=== PATIENT | male | born 1965 | race Caucasian/White ===

== ENCOUNTER 2019-08-06 10:03 | Emergency (ER) | payer OTHER, SELFPAY ==
[2019-08-06 10:14] VITALS: BP 159/96; PULSE 103; RESP 18; TEMP 37.6; O2SAT 97
--- NOTE | 2019-08-06 10:15 | ED.URI ---
HPI - URI/Sore Throat General Chief Complaint: Upper Respiratory Infection Stated Complaint: congestion/fever/cough Time Seen by Provider: 08/06/19 10:16 Source: patient and RN notes reviewed History of Present Illness HPI Narrative: Patient is a 53-year-old male that presents the urgent care with complaints of congestion, body aches, fever, chills, cough. Patient states that he has had it for approximately 1 week but is worsened within the last few days. Patient states his fever was 1022 nights ago and he has been using NyQuil, DayQuil, ibuprofen. Patient also reports of some wheezing in the evenings. No other acute complaints. No acute distress noted. Patient read the plan of care. Related Data Home Medications Medication Instructions Recorded Confirmed amitriptyline 10 mg tablet 10 mg PO ONCE 04/27/19 08/06/19 cholecalciferol (vitamin D3) 125 5,000 unit PO DAILY 04/27/19 08/06/19 mcg (5,000 unit) capsule hydrochlorothiazide 25 mg tablet 25 mg PO DAILY 04/27/19 08/06/19 loratadine 10 mg disintegrating 10 mg PO DAILY 04/27/19 08/06/19 tablet rabeprazole 20 mg tablet,delayed 20 mg PO DAILY 04/27/19 08/06/19 release tadalafil 20 mg tablet 20 mg PO DAILY PRN 04/27/19 08/06/19 aspirin [Aspirin Low Dose] 81 mg PO DAILY 08/06/19 08/06/19 multivitamin 1 tablet PO DAILY 08/06/19 08/06/19 [id number] oil [Fish 1 cap PO DAILY 08/06/19 08/06/19 Oil] ranitidine HCl 150 mg PO DAILY 08/06/19 08/06/19 Allergies Allergy/AdvReac Type Severity Reaction Status Date / Time adhesive AdvReac Intermediate RASH Verified 08/06/19 10:21 --TURNS INTO HIVES IF LEFT ON TOO LONG, PAPER TAPE OKAY Review of Systems Review of Systems: Narrative: CONSTITUTIONAL: Reports a fever, chills, sweats EYES: Denies visual changes, redness, or discharge. ENT: Reports of congestion and rhinorrhea CARDIOVASCULAR: Denies chest pain, palpitations, or edema. RESPIRATORY: Reports of dry and productive cough with intermittent wheezing GASTROINTESTINAL: Denies abdominal pain, nausea, vomiting, or diarrhea. GENITOURINARY: Denies dysuria or hematuria. SKIN: Denies rash or itching. MUSCULOSKELETAL: Denies back pain, joint pain; reports of body aches NEUROLOGIC: Denies headache, numbness, or weakness. All other systems reviewed are negative, except as documented in HPI. [facility] Family History Family History (Updated 05/20/17 @ 14:18 by DOCTOR UNKNOWN) Father Patient's father is in good health Hypertension Cerebrovascular accident Sibling Diabetes mellitus Hypertension Patient's brother is in good health Mother Family history of pancreatic cancer, Onset Age: 73 Social History Social History Smoking status: Former smoker Second hand tobacco smoke exposure: No Smoking end date: 06/17/89 Alcohol intake: current Comments At the time of my signature, I reviewed and agree with the nursing past medical, surgical, social, and family history. There is no relevant family history pertinent to the patient complaint. Exam Narrative: Exam Narrative: GENERAL: This is a well-nourished, well-developed patient, appears slightly fatigued HEAD: normocephalic, atraumatic. EYES: PERRL. Sclera clear/white. Vision is grossly intact. EARS: External ears normal, auditory canals clear and without drainage, TMs normal without perforation. Hearing grossly intact. NOSE: External nose normal with no obvious nasal discharge, nares without redness, clear rhinorrhea. THROAT: Mucous membranes moist, posterior pharynx clear. Mild postnasal drainage NECK: Neck supple, non-tender without lymphadenopathy CARDIOVASCULAR: Regular rate and rhythm without murmurs, gallops, or rubs. RESPIRATORY: Coarse wheezes to left upper lobe and diminished right lower lobe SKIN: Slightly diaphoretic. Warm, intact with no suspicious lesions or rash, good texture and turgor. NEURO: awake, alert, and oriented to person, place and time. There were
== END 2019-08-06 10:51 | disposition home or self-care (01) ==
PROVIDERS: Emergency Provider Nurse Practitioner Family; PCP Internal Medicine
DX: R06.2 Wheezing (principal); R05 Cough; R50.9 Fever, unspecified; Z87.891 Personal history of nicotine dependence; E78.00 Pure hypercholesterolemia, unspecified; I10 Essential (primary) hypertension; Z85.831 Personal history of malignant neoplasm of soft tissue
CPT/HCPCS: 87804; 99213; G0463

== ENCOUNTER 2019-10-28 09:57 | Outpatient (CLI) | payer OTHER, SELFPAY ==
[2019-10-28 10:47] LABS: Alanine Aminotransferase 41 U/L (4-50); Albumin Level 4.4 g/dL (3.5-5.1); Alkaline Phosphatase 90 U/L (38-126); Aspartate Amino Transferase 33 U/L (17-59); Bilirubin,Total 1.5 mg/dL (0.2-1.3); Blood Urea Nitrogen 27 mg/dL (9-20); Calcium 9.3 mg/dL (8.4-10.2); Carbon Dioxide 29 mmol/L (22-30); Chloride 103 mmol/L (98-107); Estimated Glomerular Filt Rate > 60; Glucose 107 mg/dL (75-110); Magnesium 2.1 mg/dL (1.6-2.3); Potassium 4.2 mmol/L (3.4-5.0); Sodium 139 mmol/L (137-145)
[2019-10-28 11:15] LABS: Prostate Specific Antigen 0.7 ng/mL (< OR = 4.0)
== END 2019-10-28 09:58 | disposition home or self-care (01) ==
PROVIDERS: PCP Internal Medicine; Visit Provider Internal Medicine
DX: R73.9 Hyperglycemia, unspecified (principal); Z12.5 Encounter for screening for malignant neoplasm of prostate
CPT/HCPCS: 36415; 80053; 83735; 84153; G0103

== ENCOUNTER 2020-02-28 01:52 | Emergency (ER) | payer OTHER, SELFPAY ==
--- NOTE | ~2020-02-28 | CT_ITS ---
EXAMINATION: CT abdomen pelvis wo con DATE: 02/28/2020 02:31 INDICATION: Left flank pain TECHNIQUE: Computed tomography (CT) of the abdomen and pelvis was performed without intravenous contr ast. The dose-length product was 1108.09 mGy-cm. Automated exposure control and iterative reconstruct ion technique were employed. COMPARISON: None. FINDINGS: Bibasilar atelectasis. No significant pleural or pericardial effusion. Heart size normal. No significant vascular abnormality. There is a 4 mm left UVJ stone with mild-moderate left hydroureteronephrosis. There is left perinephr ic and periureteral edema. There is bilateral nephrolithiasis. Liver, spleen, pancreas, adrenal glands are unremarkable. Nonobstructive bowel gas pattern. Appendix not definitely visualized. Enlarged prostate gland. Nonobstructive bowel gas pattern. Status post par tial colectomy. No free air or free fluid. No acute osseous abnormality. IMPRESSION: 1. Left UVJ stone measuring 4 mm causing mild-moderate left hydroureteronephrosis. 2: Bilateral nephrolithiasis. Reviewed, dictated and finalized at location A. IMPRESSION: 1. Left UVJ stone measuring 4 mm causing mild-moderate left hydroureteronephros is. 2: Bilateral nephrolithiasis.
[2020-02-28 01:52] VITALS: BP 179/99; PULSE 82; RESP 20; TEMP 36.7; O2SAT 99
--- NOTE | 2020-02-28 02:00 | ED.ABDPAIN ---
HPI - Abdominal Pain General Chief Complaint: Abdominal Pain Stated Complaint: L FLANK PAIN Time Seen by Provider: 02/28/20 02:00 History of Present Illness HPI narrative: Pain in the left lower back radiating to the LLQ since yesterday morning. Worse throughout the day. Associated with nausea and possibly dysuria. Initially relieved by tylenol, no longer helping. Similar pain in the past from kidney stone and ruptured tumor . He does report that he was recently experiencing diarrhea. No fever, CP, SOB, cough. Related Data Home Medications Medication Instructions Recorded Confirmed cholecalciferol (vitamin D3) 125 5,000 unit PO DAILY 04/27/19 11/03/19 mcg (5,000 unit) capsule loratadine 10 mg disintegrating 10 mg PO DAILY 04/27/19 11/03/19 tablet rabeprazole 20 mg tablet,delayed 20 mg PO DAILY 04/27/19 11/03/19 release multivitamin 1 tablet PO DAILY 08/06/19 11/03/19 ranitidine HCl 150 mg PO DAILY 08/06/19 11/03/19 Allergies Allergy/AdvReac Type Severity Reaction Status Date / Time adhesive AdvReac Intermediate RASH Verified 10/30/19 14:09 --TURNS INTO HIVES IF LEFT ON TOO LONG, PAPER TAPE OKAY Review of Systems Review of Systems: All systems reviewed & are unremarkable except as noted in HPI and below Constitutional: Constitutional: Denies fever(s) Cardiovascular: Cardiovascular: Denies chest pain Respiratory: Respiratory: Denies dyspnea Gastrointestinal: Gastrointestinal: Reports abdominal pain, Reports diarrhea, Reports nausea and Denies vomiting Genitourinary: Genitourinary: Reports dysuria and Denies urinary frequency Neurologic: Denies confusion and Denies weakness [facility] Past Medical History Medical History History of sarcoma HTN (hypertension) Family History Family History Father Patient's father is in good health Hypertension Cerebrovascular accident Sibling Diabetes mellitus Hypertension Patient's brother is in good health Mother Family history of pancreatic cancer, Onset Age: 73 Social History Social History Smoking status: Former smoker Second hand tobacco smoke exposure: No Smoking end date: 06/17/89 Alcohol intake: current Substance use: never Exam Const: General: no acute distress and alert Nutritional Appearance: obese Orientation/consciousness: patient oriented x3 HENMT: Head: normal to inspection Resp: Effort & Inspection: normal respiratory effort Auscultation: clear to auscultation bilaterally Cardio: Rate: regular rate Rhythm: regular rhythm GI: GI Palp: Yes Soft to palpation, No Tenderness to palpation present (GI), No Guarding due to palpation present (GI) and No Rebound tenderness present Back/Spine/Pelvis: Back: no CVA tenderness Skin: General skin exam: normal color Neuro: General: patient oriented x3, moves all extremities, no focal motor deficits and CN's II-XI intact bilaterally Speech: normal speech Extrem: General: normal to inspection and no edema Course Vital Signs Vital signs: Vital Signs Temperature 36.7 C 02/28/20 01:52 Pulse Rate 82 02/28/20 01:52 Respiratory Rate 20 02/28/20 01:52 Blood Pressure 179/99 H 02/28/20 01:52 Pulse Oximetry 99 02/28/20 01:52 Temperature 36.7 C 02/28/20 01:52 Pulse Rate 57 L 02/28/20 02:49 Respiratory Rate 18 02/28/20 02:49 Blood Pressure 152/91 H 02/28/20 02:49 Pulse Oximetry 99 02/28/20 02:49 MDM - Abdominal Pain MDM Narrative Medical decision making narrative: CT showed 4 mm distal stone. He passed it while still in the ED. Feeling much better Differential Diagnosis Differential diagnosis: Likely calculus of kidney, constipation, diverticulitis and small bowel obstruction Medical Records Attestation: I reviewed the patient's medical records
--- NOTE | 2020-02-28 02:15 | PC.NURSE ---
Pt attempted to provide urine sample and was unable to void. RN will attempt to get a urine sample again in 30mins.
[2020-02-28 02:20] LABS: Basophils Percent Auto 0.2 % (0.2-1.2); Eosinophils Absolute Auto 0.1 K/mm3 (0-0.3); Hematocrit 42.1 % (42.0-52.0); Hemoglobin 14.9 g/dL (14.0-18.0); Immature Granulocyte Absolute 0.03 K/mm3 (0.00-0.031); Immature Granulocyte Percent A 0.3 % (0-0.5); Lymphocytes Absolute Auto 1.83 K/mm3 (0.9-3.2); Lymphocytes Percent Auto 15.9 % (18.3-44.2); Mean Corpuscular HGB Conc 35.4 g/dl (32-36); Mean Corpuscular Hemoglobin 30.7 pg (26-34); Mean Corpuscular Volume 86.6 fl (80-100); Mean Platelet Volume 12.6 fl (7.4-10.4); Monocytes Absolute Auto 0.9 K/mm3 (0.1-0.6); Monocytes Percent Auto 7.7 % (2.6-8.5); Neutrophils Absolute Auto 8.6 K/mm3 (1.3-6.7); Neutrophils Percent Auto 74.9 % (45.5-73.1); Platelet Count Result 136 k/mm3 (150-375); Red Blood Count 4.86 M/mm3 (4.6-6.20); Red Cell Distribution Width 13.2 % (11.5-14.5); White Blood Count 11.5 K/mm3 (4.5-10.0)
[2020-02-28 02:37] LABS: Alanine Aminotransferase 40 U/L (4-50); Alkaline Phosphatase 97 U/L (38-126); Aspartate Amino Transferase 26 U/L (17-59); Bilirubin,Total 1.3 mg/dL (0.2-1.3); Blood Urea Nitrogen 13 mg/dL (9-20); Calcium 9.3 mg/dL (8.4-10.2); Estimated Glomerular Filt Rate > 60; Glucose 126 mg/dL (75-110); Lipase 59 U/L (23-300); Potassium 3.2 mmol/L (3.4-5.0); Sodium 139 mmol/L (137-145)
[2020-02-28 02:38] LABS: Albumin Level 4.3 g/dL (3.5-5.1); Anion Gap 7 mmol/L (8-16); Carbon Dioxide 31 mmol/L (22-30); Chloride 101 mmol/L (98-107)
[2020-02-28 02:49] VITALS: BP 152/91; PULSE 57; RESP 18; O2SAT 99
--- NOTE | 2020-02-28 02:50 | PC.NURSE ---
Pt refuses to attempt a urine sample. Pt refuses to be straight cathed for urine. MD Ni aware of delay and states he will order IV fluids. Awaiting orders.
[2020-02-28] MEDS: MORPHINE SULFATE 4 MG/ML INJ IV PUSH (02:57)
[2020-02-28] MEDS: SODIUM CHLORIDE 0.9% IV 1,000 ML 999 ML IV CONT (03:05)
[2020-02-28] MEDS: TAMSULOSIN HCL 0.4 MG CAPSULE PO (03:07)
[2020-02-28 03:27] LABS: Add Urine Microscopic? YES; Appearance Urine Clear (Clear); Bilirubin Urine Negative (Negative); Blood Urine 1+ (Negative); Color Urine Yellow (Yellow); Glucose Urine UA Negative (Negative); Ketones Urine Negative (Negative); Leukocyte Esterase Ur Negative LEU/UL (Negative); Mucus Urine Rare /lpf; Nitrate Urine Negative (Negative); Protein Urine Negative (Negative); Specific Grav Ur 1.014 (1.001-1.035); Squamous Epithelial Cell Urine Rare /hpf (Few); Urobilinogen Urine Negative mg/dL (<2.0); WBC Urine 0-3 /hpf
--- NOTE | 2020-02-28 03:38 | PC.NURSE ---
pt passed kidney stone at this time
[2020-02-28 04:03] VITALS: BP 140/80; PULSE 78; RESP 16; O2SAT 97
== END 2020-02-28 04:05 | disposition home or self-care (01) ==
PROVIDERS: Emergency Provider Emergency Medicine; PCP Internal Medicine
DX: N20.1 Calculus of ureter (principal); Z87.891 Personal history of nicotine dependence; I10 Essential (primary) hypertension
CPT/HCPCS: 36415; 74176; 80053; 81001; 83690; 85025; 96361; 96374; 96375; 99284; A9270; J2270; J3010; J7030

== ENCOUNTER 2020-05-03 07:11 | Outpatient (CLI) | payer OTHER, SELFPAY ==
[2020-05-03 07:38] LABS: Hematocrit 45.3 % (42.0-52.0); Mean Corpuscular HGB Conc 35.3 g/dl (32-36); Mean Corpuscular Hemoglobin 31.1 pg (26-34); Mean Platelet Volume 12.3 fl (7.4-10.4); Platelet Count Result 130 k/mm3 (150-375); Red Blood Count 5.15 M/mm3 (4.6-6.20); Red Cell Distribution Width 13.3 % (11.5-14.5); White Blood Count 7.4 K/mm3 (4.5-10.0)
[2020-05-03 07:51] LABS: Alanine Aminotransferase 55 U/L (4-50); Albumin Level 4.5 g/dL (3.5-5.1); Alkaline Phosphatase 93 U/L (38-126); Anion Gap 9 mmol/L (8-16); Aspartate Amino Transferase 34 U/L (17-59); Bilirubin,Total 1.7 mg/dL (0.2-1.3); Blood Urea Nitrogen 22 mg/dL (9-20); Calcium 8.8 mg/dL (8.4-10.2); Carbon Dioxide 31 mmol/L (22-30); Chloride 101 mmol/L (98-107); Cholesterol 140 mg/dL (0-200); Estimated Glomerular Filt Rate > 60; Glucose 111 mg/dL (75-110); HDL Direct 26 mg/dL; Sodium 141 mmol/L (137-145); Triglycerides 173 mg/dL (<150)
[2020-05-03 08:02] LABS: LDL Cholesterol Direct 82 mg/dL
== END 2020-05-03 07:12 | disposition home or self-care (01) ==
PROVIDERS: PCP Internal Medicine; Visit Provider Physician Assistant
DX: I10 Essential (primary) hypertension (principal)
CPT/HCPCS: 36415; 80053; 80061; 84443; 85027

== ENCOUNTER 2020-11-10 07:03 | Outpatient (CLI) | payer OTHER, SELFPAY ==
[2020-11-10 07:43] LABS: Hematocrit 44.2 % (42.0-52.0); Hemoglobin 15.2 g/dL (14.0-18.0); Mean Corpuscular HGB Conc 34.4 g/dl (32-36); Mean Corpuscular Hemoglobin 30.2 pg (26-34); Mean Corpuscular Volume 87.7 fl (80-100); Mean Platelet Volume 12.7 fl (7.4-10.4); Platelet Count Result 132 k/mm3 (150-375); Red Blood Count 5.04 M/mm3 (4.6-6.20); Red Cell Distribution Width 13.7 % (11.5-14.5); White Blood Count 5.3 K/mm3 (4.5-10.0)
[2020-11-10 07:56] LABS: Alanine Aminotransferase 61 U/L (4-50); Albumin Level 4.2 g/dL (3.5-5.1); Alkaline Phosphatase 101 U/L (38-126); Anion Gap 7 mmol/L (8-16); Aspartate Amino Transferase 37 U/L (17-59); Bilirubin,Total 1.2 mg/dL (0.2-1.3); Blood Urea Nitrogen 22 mg/dL (9-20); Calcium 9.4 mg/dL (8.4-10.2); Carbon Dioxide 30 mmol/L (22-30); Chloride 104 mmol/L (98-107); Estimated Glomerular Filt Rate > 60; Glucose 141 mg/dL (75-110); Potassium 3.5 mmol/L (3.4-5.0); Sodium 141 mmol/L (137-145)
[2020-11-10 08:26] LABS: Prostate Specific Antigen 0.7 ng/mL (< OR = 4.0)
[2020-11-10 10:11] LABS: Hemoglobin A1C 6.7 % (<5.7)
== END 2020-11-10 07:04 | disposition home or self-care (01) ==
LOC: ANHLAB 07:04
PROVIDERS: PCP Internal Medicine; Visit Provider Physician Assistant
DX: R53.83 Other fatigue (principal); Z12.5 Encounter for screening for malignant neoplasm of prostate; R73.9 Hyperglycemia, unspecified
CPT/HCPCS: 36415; 80053; 83036; 84153; 84443; 85027; G0103

== ENCOUNTER 2021-05-13 07:41 | Outpatient (CLI) | payer OTHER, SELFPAY ==
[2021-05-13 08:04] LABS: Basophils Percent Auto 0.5 % (0.2-1.2); Eosinophils Absolute Auto 0.1 K/mm3 (0-0.3); Eosinophils Percent Auto 1.5 % (0-4.4); Hematocrit 41.2 % (42.0-52.0); Hemoglobin 14.2 g/dL (14.0-18.0); Immature Granulocyte Absolute 0.01 K/mm3 (0.00-0.031); Immature Granulocyte Percent A 0.2 % (0-0.5); Lymphocytes Absolute Auto 1.81 K/mm3 (0.9-3.2); Lymphocytes Percent Auto 30.7 % (18.3-44.2); Mean Corpuscular HGB Conc 34.5 g/dl (32-36); Mean Corpuscular Hemoglobin 30.6 pg (26-34); Mean Corpuscular Volume 88.8 fl (80-100); Mean Platelet Volume 12.8 fl (7.4-10.4); Monocytes Absolute Auto 0.4 K/mm3 (0.1-0.6); Monocytes Percent Auto 7.3 % (2.6-8.5); Neutrophils Absolute Auto 3.5 K/mm3 (1.3-6.7); Neutrophils Percent Auto 59.8 % (45.5-73.1); Platelet Count Result 120 k/mm3 (150-375); Red Blood Count 4.64 M/mm3 (4.6-6.20); Red Cell Distribution Width 13.2 % (11.5-14.5); White Blood Count 5.9 K/mm3 (4.5-10.0)
[2021-05-13 08:06] LABS: Alanine Aminotransferase 59 U/L (4-50); Alkaline Phosphatase 106 U/L (38-126); Anion Gap 7 mmol/L (8-16); Aspartate Amino Transferase 33 U/L (17-59); Bilirubin,Total 0.9 mg/dL (0.2-1.3); Blood Urea Nitrogen 21 mg/dL (9-20); Calcium 8.9 mg/dL (8.4-10.2); Carbon Dioxide 32 mmol/L (22-30); Chloride 102 mmol/L (98-107); Cholesterol 140 mg/dL (0-200); Estimated Glomerular Filt Rate > 60; Glucose 131 mg/dL (65-110); HDL Direct 29 mg/dL; Potassium 3.4 mmol/L (3.4-5.0); Sodium 141 mmol/L (137-145); Triglycerides 174 mg/dL (<150)
[2021-05-13 08:17] LABS: LDL Cholesterol Direct 84 mg/dL
[2021-05-13 08:26] LABS: Hemoglobin A1C 6.5 % (<5.7)
== END 2021-05-13 07:42 | disposition home or self-care (01) ==
LOC: ANHLAB 07:43
PROVIDERS: PCP Internal Medicine; Visit Provider Internal Medicine
DX: R53.83 Other fatigue (principal); R73.9 Hyperglycemia, unspecified
CPT/HCPCS: 36415; 80053; 80061; 83036; 85025

== ENCOUNTER 2021-11-20 06:51 | Outpatient (CLI) | payer OTHER, SELFPAY ==
[2021-11-20 07:28] LABS: Basophils Percent Auto 0.5 % (0.2-1.2); Eosinophils Absolute Auto 0.1 K/mm3 (0-0.3); Eosinophils Percent Auto 1.5 % (0-4.4); Hematocrit 42.9 % (42.0-52.0); Hemoglobin 14.6 g/dL (14.0-18.0); Immature Granulocyte Absolute 0.02 K/mm3 (0.00-0.031); Immature Granulocyte Percent A 0.3 % (0-0.5); Lymphocytes Absolute Auto 1.44 K/mm3 (0.9-3.2); Lymphocytes Percent Auto 23.5 % (18.3-44.2); Mean Corpuscular Hemoglobin 30.2 pg (26-34); Mean Corpuscular Volume 88.8 fl (80-100); Mean Platelet Volume 12.9 fl (7.4-10.4); Monocytes Absolute Auto 0.5 K/mm3 (0.1-0.6); Monocytes Percent Auto 8.8 % (2.6-8.5); Neutrophils Percent Auto 65.4 % (45.5-73.1); Platelet Count Result 127 k/mm3 (150-375); Red Blood Count 4.83 M/mm3 (4.6-6.20); Red Cell Distribution Width 13.5 % (11.5-14.5); White Blood Count 6.1 K/mm3 (4.5-10.0)
[2021-11-20 07:41] LABS: Alanine Aminotransferase 75 U/L (6-50); Albumin Level 4.3 g/dL (3.5-5.1); Alkaline Phosphatase 115 U/L (38-126); Anion Gap 6 mmol/L (8-16); Aspartate Amino Transferase 34 U/L (17-59); Bilirubin,Total 1.2 mg/dL (0.2-1.3); Blood Urea Nitrogen 19 mg/dL (9-20); Calcium 8.5 mg/dL (8.4-10.2); Carbon Dioxide 30 mmol/L (22-30); Chloride 103 mmol/L (98-107); Cholesterol 150 mg/dL (0-200); Estimated Glomerular Filt Rate > 60; Glucose 155 mg/dL (65-110); HDL Direct 30 mg/dL; Potassium 3.4 mmol/L (3.4-5.0); Sodium 139 mmol/L (137-145); Triglycerides 133 mg/dL (<150)
[2021-11-20 07:52] LABS: LDL Cholesterol Direct 86 mg/dL
[2021-11-20 08:12] LABS: Prostate Specific Antigen 0.9 ng/mL (< OR = 4.0)
== END 2021-11-20 06:52 | disposition home or self-care (01) ==
LOC: ANHLAB 06:53
PROVIDERS: PCP Internal Medicine; Visit Provider Internal Medicine
DX: E78.5 Hyperlipidemia, unspecified (principal); R73.9 Hyperglycemia, unspecified; R53.83 Other fatigue
CPT/HCPCS: 36415; 80053; 80061; 83036; 84153; 84443; 85025; G0103

== ENCOUNTER 2022-05-28 06:50 | Outpatient (CLI) | payer OTHER, SELFPAY ==
[2022-05-28 07:48] LABS: Basophils Percent Auto 0.5 % (0.2-1.2); Eosinophils Absolute Auto 0.2 K/mm3 (0-0.3); Eosinophils Percent Auto 3.6 % (0-4.4); Hematocrit 41.4 % (42.0-52.0); Hemoglobin 14.3 g/dL (14.0-18.0); Immature Granulocyte Absolute 0.01 K/mm3 (0.00-0.031); Immature Granulocyte Percent A 0.2 % (0-0.5); Lymphocytes Absolute Auto 1.41 K/mm3 (0.9-3.2); Lymphocytes Percent Auto 25.3 % (18.3-44.2); Mean Corpuscular HGB Conc 34.5 g/dl (32-36); Mean Corpuscular Hemoglobin 30.6 pg (26-34); Mean Corpuscular Volume 88.7 fl (80-100); Mean Platelet Volume 12.8 fl (7.4-10.4); Monocytes Absolute Auto 0.3 K/mm3 (0.1-0.6); Monocytes Percent Auto 5.9 % (2.6-8.5); Neutrophils Absolute Auto 3.6 K/mm3 (1.3-6.7); Neutrophils Percent Auto 64.5 % (45.5-73.1); Platelet Count Result 113 k/mm3 (150-375); Red Blood Count 4.67 M/mm3 (4.6-6.20); Red Cell Distribution Width 13.4 % (11.5-14.5); White Blood Count 5.6 K/mm3 (4.5-10.0)
[2022-05-28 08:00] LABS: Alanine Aminotransferase 86 U/L (6-50); Albumin Level 3.9 g/dL (3.5-5.1); Alkaline Phosphatase 112 U/L (38-126); Anion Gap 6 mmol/L (8-16); Aspartate Amino Transferase 51 U/L (17-59); Bilirubin,Total 1.1 mg/dL (0.2-1.3); Blood Urea Nitrogen 22 mg/dL (9-20); Calcium 8.1 mg/dL (8.4-10.2); Carbon Dioxide 30 mmol/L (22-30); Chloride 102 mmol/L (98-107); Cholesterol 147 mg/dL (0-200); Estimated Glomerular Filt Rate > 60; Glucose 175 mg/dL (65-110); HDL Direct 28 mg/dL; Potassium 3.5 mmol/L (3.4-5.0); Sodium 138 mmol/L (137-145); Triglycerides 205 mg/dL (<150)
[2022-05-28 08:12] LABS: LDL Cholesterol Direct 81 mg/dL
[2022-05-28 09:00] LABS: Hemoglobin A1C 8.5 % (<5.7)
[2022-05-28 09:14] LABS: Folic Acid > 20.0 ng/mL (2.76->20)
== END 2022-05-28 06:51 | disposition home or self-care (01) ==
LOC: ANHLAB 06:52
PROVIDERS: PCP Internal Medicine; Visit Provider Internal Medicine
DX: E78.5 Hyperlipidemia, unspecified (principal); R73.9 Hyperglycemia, unspecified; R53.83 Other fatigue
CPT/HCPCS: 36415; 80053; 80061; 82607; 82746; 83036; 84443; 85025

== ENCOUNTER 2022-09-01 07:35 | Outpatient (CLI) | payer OTHER, SELFPAY ==
[2022-09-01 09:07] LABS: Alanine Aminotransferase 76 U/L (6-50); Albumin Level 4.4 g/dL (3.5-5.1); Alkaline Phosphatase 102 U/L (38-126); Anion Gap 6 mmol/L (8-16); Aspartate Amino Transferase 41 U/L (17-59); Bilirubin,Total 1.2 mg/dL (0.2-1.3); Blood Urea Nitrogen 22 mg/dL (9-20); Calcium 8.8 mg/dL (8.4-10.2); Carbon Dioxide 31 mmol/L (22-30); Chloride 104 mmol/L (98-107); Estimated Glomerular Filt Rate > 60; Glucose 123 mg/dL (65-110); Potassium 3.7 mmol/L (3.4-5.0); Sodium 141 mmol/L (137-145)
[2022-09-01 09:08] LABS: Hemoglobin A1C 6.6 % (<5.7)
[2022-09-01 10:14] LABS: Creatinine Urine 236.3 mg/dL
[2022-09-01 10:19] LABS: MALB Creatinine Ratio 7.1 mg/g (0-30); Microalbumin Urine Random 16.7 mg/L (0-16.7)
== END 2022-09-01 07:36 | disposition home or self-care (01) ==
LOC: ANHLAB 07:37
PROVIDERS: PCP Internal Medicine; Visit Provider Internal Medicine
DX: E11.9 Type 2 diabetes mellitus without complications (principal); E78.5 Hyperlipidemia, unspecified
CPT/HCPCS: 36415; 80053; 82043; 83036

== ENCOUNTER 2023-03-16 07:35 | Outpatient (CLI) | payer OTHER, SELFPAY ==
[2023-03-16 08:02] LABS: Basophils Percent Auto 0.3 % (0.2-1.2); Eosinophils Absolute Auto 0.1 K/mm3 (0-0.3); Eosinophils Percent Auto 1.3 % (0-4.4); Hematocrit 41.9 % (42.0-52.0); Hemoglobin 14.4 g/dL (14.0-18.0); Immature Granulocyte Absolute 0.02 K/mm3 (0.00-0.031); Immature Granulocyte Percent A 0.3 % (0-0.5); Lymphocytes Absolute Auto 1.67 K/mm3 (0.9-3.2); Lymphocytes Percent Auto 26.3 % (18.3-44.2); Mean Corpuscular HGB Conc 34.4 g/dl (32-36); Mean Corpuscular Hemoglobin 30.9 pg (26-34); Mean Corpuscular Volume 89.9 fl (80-100); Mean Platelet Volume 12.7 fl (7.4-10.4); Monocytes Absolute Auto 0.4 K/mm3 (0.1-0.6); Monocytes Percent Auto 6.9 % (2.6-8.5); Neutrophils Absolute Auto 4.1 K/mm3 (1.3-6.7); Neutrophils Percent Auto 64.9 % (45.5-73.1); Platelet Count Result 119 k/mm3 (150-375); Red Blood Count 4.66 M/mm3 (4.6-6.20); Red Cell Distribution Width 13.2 % (11.5-14.5); White Blood Count 6.4 K/mm3 (4.5-10.0)
[2023-03-16 08:21] LABS: Alanine Aminotransferase 48 U/L (6-50); Albumin Level 4.3 g/dL (3.5-5.1); Alkaline Phosphatase 98 U/L (38-126); Anion Gap 4 mmol/L (8-16); Aspartate Amino Transferase 31 U/L (17-59); Bilirubin,Total 1.1 mg/dL (0.2-1.3); Blood Urea Nitrogen 20 mg/dL (9-20); Carbon Dioxide 31 mmol/L (22-30); Chloride 103 mmol/L (98-107); Estimated Glomerular Filt Rate > 60; Glucose 128 mg/dL (65-110); Potassium 3.6 mmol/L (3.4-5.0); Sodium 138 mmol/L (137-145)
[2023-03-16 08:41] LABS: Creatinine Urine 76.7 mg/dL
[2023-03-16 08:46] LABS: MALB Creatinine Ratio 10.3 mg/g (0-30); Microalbumin Urine Random 7.9 mg/L (0-16.7)
[2023-03-18 16:23] LABS: Prostate Specific Antigen 1.1 ng/mL (< OR = 4.0)
== END 2023-03-16 07:36 | disposition home or self-care (01) ==
LOC: ANHLAB 07:36
PROVIDERS: PCP Internal Medicine; Visit Provider Internal Medicine
DX: Z12.5 Encounter for screening for malignant neoplasm of prostate (principal); E11.9 Type 2 diabetes mellitus without complications; E78.5 Hyperlipidemia, unspecified; R53.83 Other fatigue
CPT/HCPCS: 36415; 80053; 82043; 83036; 84153; 84443; 85025; G0103

== ENCOUNTER 2023-11-12 11:21 | Outpatient (CLI) | payer OTHER, SELFPAY ==
[2023-11-12 20:22] LABS: Microalbumin Urine Random 65.5 mg/L (0-16.7)
[2023-11-12 20:35] LABS: Alanine Aminotransferase 76 U/L (6-50); Albumin Level 4.4 g/dL (3.5-5.1); Alkaline Phosphatase 100 U/L (38-126); Anion Gap 7 mmol/L (4-12); Aspartate Amino Transferase 50 U/L (17-59); Bilirubin,Total 1.2 mg/dL (0.2-1.3); Blood Urea Nitrogen 23 mg/dL (9-20); Calcium 9.4 mg/dL (8.4-10.2); Carbon Dioxide 29 mmol/L (22-30); Chloride 102 mmol/L (98-107); Cholesterol 148 mg/dL (0-200); Estimated Glomerular Filt Rate > 60; Glucose 183 mg/dL (65-110); HDL Direct 31 mg/dL; Potassium 3.6 mmol/L (3.4-5.0); Sodium 138 mmol/L (137-145); Triglycerides 183 mg/dL (<150)
[2023-11-12 20:38] LABS: LDL Cholesterol Direct 88 mg/dL
[2023-11-12 20:51] LABS: Hemoglobin A1C 7.2 % (<5.7)
== END 2023-11-12 11:22 | disposition home or self-care (01) ==
PROVIDERS: PCP Internal Medicine; Visit Provider Clinical Nurse Specialist
DX: E78.5 Hyperlipidemia, unspecified (principal); I10 Essential (primary) hypertension; E11.9 Type 2 diabetes mellitus without complications
CPT/HCPCS: 36415; 80053; 80061; 82043; 83036

== ENCOUNTER 2023-11-27 10:30 | Outpatient (CLI) | payer OTHER, SELFPAY ==
--- NOTE | ~2023-11-27 | US_ITS ---
US right upper quadrant INDICATION: Elevated liver transaminase levels PROCEDURE: Realtime right upper abdominal ultrasound. COMPARISON: No prior studies for comparison. FINDINGS: The pancreas is normal without focal mass or pancreatic ductal dilation. There is a small 1.6 cm hypoechoic mass of the liver, most likely benign in the absence of known malignancy. There is diffuse fat increased liver echotexture, consistent with fatty infiltration. There is normal directi onal flow in the portal vein. The gallbladder is normal without stones, gallbladder wall thickening or pericholecystic fluid. Comm on bile duct measures 3 mm. No sonographic Gibbs's sign. IMPRESSION: 1: Small 1.6 cm hypoechoic liver mass, most likely benign cyst or hemangioma in the absence of known malignancy. Clinically correlate. Consider follow-up ultrasound in 6 months. 2: Fatty infiltration of the liver. Reviewed, dictated and finalized at location B. IMPRESSION: 1: Small 1.6 cm hypoechoic liver mass, most likely benign cyst or hemangioma in the absence of known malignancy. Clinically correlate. Consider follow-up ultr asound in 6 months. 2: Fatty infiltration of the liver.
== END 2023-11-27 10:31 ==
LOC: MICIMG 10:31
PROVIDERS: PCP Clinical Nurse Specialist; Visit Provider Clinical Nurse Specialist
DX: R74.01 Elevation of levels of liver transaminase levels (principal); K76.0 Fatty (change of) liver, not elsewhere classified
CPT/HCPCS: 76705

== ENCOUNTER 2023-12-18 13:44 | Outpatient (CLI) | payer OTHER, SELFPAY ==
[2023-12-18 16:15] LABS: Hepatitis C Virus Antibody Negative (Negative)
[2023-12-20 13:20] LABS: Alanine Aminotransferase 54 U/L (6-50); Alkaline Phosphatase 85 U/L (38-126); Anion Gap 8 mmol/L (4-12); Aspartate Amino Transferase 38 U/L (17-59); Bilirubin,Total 0.7 mg/dL (0.2-1.3); Blood Urea Nitrogen 18 mg/dL (9-20); Calcium 9.2 mg/dL (8.4-10.2); Carbon Dioxide 28 mmol/L (22-30); Chloride 107 mmol/L (98-107); Estimated Glomerular Filt Rate > 60; Glucose 149 mg/dL (65-110); Potassium 3.9 mmol/L (3.4-5.0); Sodium 143 mmol/L (137-145)
[2023-12-21 01:44] LABS: Hepatitis B Core Ab Total NON-REACTIVE (NON-REACTIVE)
== END 2023-12-18 13:45 | disposition home or self-care (01) ==
PROVIDERS: PCP Clinical Nurse Specialist; Visit Provider Clinical Nurse Specialist
DX: R74.01 Elevation of levels of liver transaminase levels (principal); B35.1 Tinea unguium
CPT/HCPCS: 36415; 80053; 86704; 86803

== ENCOUNTER 2024-04-03 00:19 | Day surgery (SDC) | payer OTHER, SELFPAY ==
[2024-03-18 09:38] VITALS: BMI 32.8
[2024-04-03 07:46] VITALS: BP 160/100; PULSE 90; RESP 16; TEMP 36.8; O2SAT 100
[2024-04-03] MEDS: LACTATED RINGERS 1,000 ML 150 ML IV CONT (07:51)
--- NOTE | 2024-04-03 07:51 | WPDANESEPPF ---
Anes - Initial Pre Proc Eval Procedure: Operation Date: 04/03/24 09:00 Proposed Procedures p Colonoscopy - Darwin Liz MD Date/Time: 04/03/24 07:51 Surgeon: Darwin Liz MD Pre Op Diagnosis: Personal hx. colon polyps Patient Data Age: 58 Gender: M Height: 1.78 m Weight: 100 kg Last Vital Signs Temp 36.8 C 04/03/24 07:46 Pulse 90 04/03/24 07:46 Resp 16 04/03/24 07:46 BP 160/100 H 04/03/24 07:46 Pulse Ox 100 04/03/24 07:46 O2 Del Method Room Air 04/03/24 07:46 Allergies Allergy/AdvReac Type Severity Reaction Status Date / Time adhesive AdvReac Intermediate RASH Verified 04/03/24 07:42 --TURNS INTO HIVES IF LEFT ON TOO LONG, PAPER TAPE OKAY Home Medications Medication Instructions Recorded Confirmed Type cholecalciferol (vitamin D3) 125 5,000 unit PO DAILY 04/27/19 04/03/24 History mcg (5,000 unit) capsule loratadine 10 mg disintegrating 10 mg PO DAILY 04/27/19 04/03/24 History tablet (Allergy Relief (loratadine)) multivitamin 1 tablet PO DAILY 08/06/19 04/03/24 History hydrochlorothiazide 25 mg tablet 25 mg PO DAILY #90 tabs 08/08/23 04/03/24 Rx atenolol 50 mg tablet 50 mg PO DAILY #90 tabs 08/22/23 04/03/24 Rx esomeprazole magnesium 40 mg 40 mg PO DAILY #90 caps 09/11/23 04/03/24 Rx capsule,delayed release (Nexium) amlodipine 5 mg tablet 5 mg PO DAILY #90 tabs 09/18/23 04/03/24 Rx amitriptyline 10 mg tablet 10 mg PO .hs #90 tabs 10/14/23 04/03/24 Rx lisinopril 40 mg tablet 40 mg PO DAILY #90 tabs 12/18/23 04/03/24 Rx atorvastatin 40 mg tablet 40 mg PO DAILY #90 tabs 02/27/24 04/03/24 Rx tadalafil 20 mg tablet (Cialis) 20 mg PO DAILY PRN Erectile 03/03/24 04/03/24 Rx Dysfunction #18 tabs metformin 500 mg tablet,extended 500 mg PO DAILY 03/16/24 04/03/24 History release 24 hr Patient hx anesthesia problems: none Family hx anesthesia problems: none Results Review: All pre-operative results and documents have been reviewed as part of the pre-operative evaluation. [facility] Past Medical History Medical History (Updated 04/03/24 @ 07:51 by Darren Stubbs MD) BMI 35.0-35.9,adult History of sarcoma HTN (hypertension) Hyperglycemia Sleep apnea in adult Family History Family History Father Patient's father is in good health Hypertension Cerebrovascular accident Sibling Diabetes mellitus Hypertension Patient's brother is in good health Mother Family history of pancreatic cancer, Onset Age: 73 Social History Social History Smoking packs per day: 0.25 Smoking cigarettes per day: 5.0 Years smoked: 4 Smoking pack-years: 1.00 Smoking status: Former smoker Tobacco type: cigarettes Second hand tobacco smoke exposure: No Smoking end date: 06/17/89 Alcohol intake: former Substance use: never Lack of Transportation: No Lack of Food: Never True Current Housing: I Have Housing Concerned About Future Housing: No Difficulty Paying Gas/Electric Bills: No Difficulty Paying for Meds: No Currently Unemployed: No Education: Master's Degree or Higher Difficulty w/ Childcare or Family Care: No Living arrangements: with family Spiritual care concerns: No Anes - Eval Final PreProcedure Day of Procedure 04/03/24 07:51 Patient weight: obese Heart: regular rate and rhythm Lungs: clear to auscultation Airway: Mallampati scale class II Neurological: alert and oriented Last oral intake: >/= 8 hours ASA classification: III Emergent: no Anesthetic plan: proceed Anesthesia type and monitoring: general GIVS and standard monitoring Results Review: All pre-operative results and documents have been reviewed as part of the pre-operative evaluation. Informed Consent: The patient's anesthetic plan and its attendant risks and benefits were discussed
[2024-04-03 07:58] LABS: Glucose Point of Care 118 mg/dl (65-105)
--- NOTE | 2024-04-03 08:38 | PM.HPGS ---
History of Present Illness History of Present Illness Consent: Risks, benefits, and alternatives have been discussed and questions answered. Patient agrees to proceed with procedure. Chief complaint: Personal hx. colon polyps Narrative: Hardik Callejas is a 58 year old male here for screening colonoscopy last one 2016, had colon resection years ago for non cancerous colon growth Review of Systems Review of Systems: All systems reviewed & are unremarkable except as noted in HPI and below PMFSH Past Medical History Medical History (Updated 04/03/24 @ 07:51 by Darren Stubbs MD) BMI 35.0-35.9,adult History of sarcoma HTN (hypertension) Hyperglycemia Sleep apnea in adult Family History Family History Father Patient's father is in good health Hypertension Cerebrovascular accident Sibling Diabetes mellitus Hypertension Patient's brother is in good health Mother Family history of pancreatic cancer, Onset Age: 73 Social History Social History Smoking packs per day: 0.25 Smoking cigarettes per day: 5.0 Years smoked: 4 Smoking pack-years: 1.00 Smoking status: Former smoker Tobacco type: cigarettes Second hand tobacco smoke exposure: No Smoking end date: 06/17/89 Alcohol intake: former Substance use: never Lack of Transportation: No Lack of Food: Never True Current Housing: I Have Housing Concerned About Future Housing: No Difficulty Paying Gas/Electric Bills: No Difficulty Paying for Meds: No Currently Unemployed: No Education: Master's Degree or Higher Difficulty w/ Childcare or Family Care: No Living arrangements: with family Spiritual care concerns: No Meds Home Medications and Allergies Home Medications Medication Instructions Recorded Confirmed Type cholecalciferol (vitamin D3) 125 5,000 unit PO DAILY 04/27/19 04/03/24 History mcg (5,000 unit) capsule loratadine 10 mg disintegrating 10 mg PO DAILY 04/27/19 04/03/24 History tablet (Allergy Relief (loratadine)) multivitamin 1 tablet PO DAILY 08/06/19 04/03/24 History hydrochlorothiazide 25 mg tablet 25 mg PO DAILY #90 tabs 08/08/23 04/03/24 Rx atenolol 50 mg tablet 50 mg PO DAILY #90 tabs 08/22/23 04/03/24 Rx esomeprazole magnesium 40 mg 40 mg PO DAILY #90 caps 09/11/23 04/03/24 Rx capsule,delayed release (Nexium) amlodipine 5 mg tablet 5 mg PO DAILY #90 tabs 09/18/23 04/03/24 Rx amitriptyline 10 mg tablet 10 mg PO .hs #90 tabs 10/14/23 04/03/24 Rx lisinopril 40 mg tablet 40 mg PO DAILY #90 tabs 12/18/23 04/03/24 Rx atorvastatin 40 mg tablet 40 mg PO DAILY #90 tabs 02/27/24 04/03/24 Rx tadalafil 20 mg tablet (Cialis) 20 mg PO DAILY PRN Erectile 03/03/24 04/03/24 Rx Dysfunction #18 tabs metformin 500 mg tablet,extended 500 mg PO DAILY 03/16/24 04/03/24 History release 24 hr Allergies Allergy/AdvReac Type Severity Reaction Status Date / Time adhesive AdvReac Intermediate RASH Verified 04/03/24 07:42 --TURNS INTO HIVES IF LEFT ON TOO LONG, PAPER TAPE OKAY Vital Signs Vital Signs - 24 hr 04/03/24 07:46 Temperature 98.2 F Pulse Rate 90 Respiratory Rate 16 Blood Pressure 160/100 H Pulse Oximetry 100 Oxygen Delivery Room Air Exam Const: General: comfortable and no acute distress HENMT: Face/Nose/Sinus: Normal nares present Eyes: General: appearance normal, both eyes and all related structures Neck: Neck: no JVD Resp: Auscultation: clear to auscultation bilaterally Cardio: Rate: regular rate Rhythm: regular rhythm GI: Inspection: non-distended GI Palp: Yes Soft to palpation Skin: General skin exam: normal color Neuro: General: gait normal Speech: normal speech Extrem: General: normal to inspection Psych: Mental Status: mental status grossly normal Assessment and Plan Assessment and plan (1) Histor
[2024-04-03 08:56] VITALS: BP 121/80; PULSE 76; RESP 16; O2SAT 98
[2024-04-03 09:06] VITALS: BP 134/86; PULSE 73; RESP 16; O2SAT 100
[2024-04-03 09:16] VITALS: BP 136/88; PULSE 66; RESP 16; O2SAT 100
== END 2024-04-03 09:26 | disposition home or self-care (01) ==
PROVIDERS: PCP Clinical Nurse Specialist; Referring Provider Clinical Nurse Specialist; Visit Provider Internal Medicine Gastroenterology
PROC: 0DJD8ZZ Inspection of Lower Intestinal Tract, Via Natural or Artificial Opening Endoscopic (ICD-10-PCS; CPT 45378; principal; 2024-04-03 09:00)
DX: Z12.11 Encounter for screening for malignant neoplasm of colon (principal); K64.8 Other hemorrhoids; Z86.0100 Personal history of colon polyps, unspecified; Z98.0 Intestinal bypass and anastomosis status; Z90.49 Acquired absence of other specified parts of digestive tract; Z87.891 Personal history of nicotine dependence; Z79.899 Other long term (current) drug therapy; E66.9 Obesity, unspecified; Z68.31 Body mass index [BMI] 31.0-31.9, adult
CPT/HCPCS: 45378; 82948; J2003; J2704; J7120

== ENCOUNTER 2024-05-16 07:25 | Outpatient (CLI) | payer OTHER, SELFPAY ==
[2024-05-16 07:58] LABS: Alanine Aminotransferase 26 U/L (6-50); Albumin Level 4.4 g/dL (3.5-5.1); Alkaline Phosphatase 79 U/L (38-126); Anion Gap 6 mmol/L (4-12); Aspartate Amino Transferase 24 U/L (17-59); Bilirubin,Total 1.2 mg/dL (0.2-1.3); Blood Urea Nitrogen 22 mg/dL (9-20); Calcium 9.2 mg/dL (8.4-10.2); Carbon Dioxide 31 mmol/L (22-30); Chloride 103 mmol/L (98-107); Estimated Glomerular Filt Rate > 60; Glucose 110 mg/dL (65-110); Potassium 3.8 mmol/L (3.4-5.0); Sodium 140 mmol/L (137-145)
[2024-05-16 08:00] LABS: Hemoglobin A1C 5.9 % (<5.7)
[2024-05-16 08:29] LABS: Prostate Specific Antigen 0.9 ng/mL (< OR = 4.0)
[2024-05-16 09:17] LABS: Creatinine Urine 127.4 mg/dL
[2024-05-16 09:20] LABS: MALB Creatinine Ratio 8.4 mg/g (0-30); Microalbumin Urine Random 10.7 mg/L (0-16.7)
== END 2024-05-16 07:26 | disposition home or self-care (01) ==
LOC: ANHLAB 07:27
PROVIDERS: PCP Clinical Nurse Specialist; Visit Provider Clinical Nurse Specialist
DX: E11.9 Type 2 diabetes mellitus without complications (principal); B35.1 Tinea unguium; I10 Essential (primary) hypertension; Z12.5 Encounter for screening for malignant neoplasm of prostate
CPT/HCPCS: 36415; 80053; 82043; 83036; 84153; G0103

== ENCOUNTER 2024-11-14 07:06 | Outpatient (CLI) | payer OTHER, SELFPAY ==
--- OUTSIDE RECORDS SUMMARY | 2024-11-14 07:09 | XMS_ITS | Continuity of Care Document ---
Author Name [facility] Organization [facility] Care Team Providers Care Shoeshiner Name Role Phone [facility] Unavailable Unavailable Problems Combined list of problems from Department of Defense and Veterans Affairs facilities. It does not include entries that were removed or entered in error. Problem Status Onset Date Problem Type Date of Resolution Comments Source Presbyopia Active 07/24/19 11 Condition DoD Hypermetropia Active 07/24/19 11 Condition DoD Regular astigmatism, bilateral Active 07/24/19 11 Condition DoD visit for: services physical Inactive 04/16/20 06 Condition [id number] reviewed, completed. Spent 20 of 25 minutes reviewing conditions with pt for accuracy, assurance of documentation. Complete GI referral as scheduled. See 4379 for details. DoD disorder of accommodation Inactive 03/27/20 Condition DoD Gastro-esophageal reflux disease without esophagitis Active 03/06/20 Condition referred to gastro due to prior hx for further eval. Annual labs also ordered for pt along with h pylori. Follow up as needed. DoD Essential (primary) hypertension Active 03/06/20 Condition Neg Retinopathy DoD Congenital pes planus, unspecified foot Active 10/31/19 06 Condition DoD Benign neoplasm of colon, unspecified Active 10/04/19 06 Condition s/p resection 1998, recurrence and repeat resection/colosto my 2000, colostomy takedown 2001. Has been getting annual CTs of abd/pelvis to eval for recurrence. Will get another, recommended pt contact GI surgeon who made original recommendation to see ho DoD routine ophthalmological exam Inactive Condition DoD plantar fasciitis left Active Condition DoD plantar fasciitis Active Condition Pr ofile, continue aerobic exercise. DoD abdominal pain Inactive Condition Uncle ar etiology. Suspect is benign. Discussed options with pt in detail, especially given pt's significant past abd history. Will observe, f/u if sx persist for further w/u (to include imaging). Pt very comfortable with this POC. DoD Other Physical Therapy Inactive Condition DoD problem related to lifestyle Active Condition DoD Preventive Medicine Established Patient Checkup Adult 18-39 Years Inactive Condition DoD pneumonia Active Condition DoD shortness of breath Active Condition will try these meds, get an EKG and refer to pulmonology due to hx of ARDS and potential for chronic problems DoD Medications Combined list of outpatient medications from Department of Defense and Veterans Affairs facilities.Medications provided include 1) outpatient medications from the last 15 months, and 2) patient-reported medications. Medication Details Route Status Patient Instructions Prescription Expires Prescription Number Last Dispense Date Ordering Provider Order Date Order Qty Source AMITRIPTYLI NE HCL (amitriptyl ine HCl), 10 MG, TABLET, ORAL, [employer] 1000 ea. BOTTLE Active [id number] 4 2023 90 Pharmac y Data Transac tion Service Facilit y AMLODIPINE BESYLATE (AMLODIPINE BESYLATE), 5 MG, TABLET, ORAL, [employer] PHARMACE, 1000 ea. BOTTLE Active [id number] 4 2023 90 Pharmac y Data Transac tion Service Facilit y ATENOLOL (ATENOLOL), 50 MG, TABLET, ORAL, [employer] 1000 ea. BOTTLE Active [id number] 4 2023 90 Pharmac y Data Transac tion Service Facilit y ATENOLOL (ATENOLOL), 50 MG, TABLET, ORAL, [employer] 1000 ea. BOTTLE Active [id number] 4 2023 90 Pharmac y Data Transac tion Service Facilit y ATORVASTATI N CALCIUM (atorvastat in calcium), 40 MG, TABLET, ORAL, [employer] PHARMACEU, 1000 ea. BOTTLE Active [id number] 4 2023 90 Pharmac y Data Transac tion Service Facilit y ESOMEPRAZOL E MAGNESIUM (esomeprazo le magnesium), 40 MG, CAPSULE DR, ORAL, [employer]ARMACE, 30 ea. BOTTLE Active [id number] 4 2023 90 Pharmac y Data Transac tion Service Facilit y TADALAFIL (tadalafil) , 20 MG, TABLET, ORAL, AJANTA PHARMA L, 30 ea. BOTTLE Active [id number] 4 2023 18 Pharmac y Data Transac tion Service Facilit y TADALAFIL (tadalafil) , 20 MG, TABLET, ORAL, AJANTA PHARMA L, 30 ea. BOTTLE Active [id number] 4 2023 18 Pharmac y Data Transac tion Service Facilit y TERBINAFINE HCL (TERBINAFIN E HCL), 250MG, TABLET, ORAL, [employer]ARM, 30 ea. BOTTLE Cancele d [id number] : 2023 0 Pharmac y Data Transac tion Service Facilit y Allergies, Adverse Reactions, Alerts Combined list of allergies from Department of Defense and Veterans Affairs facilities. It does not include entries that were removed or entered in error. Substance Category Reaction Severity Reaction type Status Date Reported Comments Source ADHESIVE TAPE (ADHESIVE TAPE) Allergy to substance (disorder) Rash active [address] [place] [address] Jerry [facility]) DARVOCET-N 100 (PROPOXYPHE NE/ACETAMIN OPHEN) Drug allergy (disorder) Generalized Rash active [address] [place] [address]) DEMEROL (MEPERIDINE HCL) Drug allergy (disorder) Generalized Rash active [address] [place] [address]) Immunizations Combined list of available immunizations from the Department of Defense and [facility] facilities. Immunization Series Date Given Administered By Site Reaction Lot Number CVX Code Drug Environmental Assistant Status Comments Source COVID-19, mRNA, LNP-S, PF, 30 mcg/0.3 mL dose, genia-sucrose 2021 [employer] [place] (PFR) Not Given COVID-19, mRNA, LNP-S, PF, 30 mcg/0.3 mL dose, genia-sucr ose DoD Influenza, injectable, MDCK, preservative free, quadrivalent 2020 RAMÍREZ, () Not Given Influenza , injectabl e, MDCK, preservat romulo free, quadrival ent DoD COVID-19, mRNA, LNP-S, PF, 30 mcg/0.3 mL dose 2020 [employer] [place] (PFR) Not Given COVID-19, mRNA, LNP-S, PF, 30 mcg/0.3 mL dose DoD Influenza, injectable, MDCK, preservative free, quadrivalent 2019 ALUL, () Not Given Influenza , injectabl e, MDCK, preservat romulo free, quadrival ent DoD Tdap 2019 ALUL, () Not Given Tdap DoD Influenza, injectable, MDCK, preservative free, quadrivalent 2018 ALUL, () Not Given Influenza , injectabl e, MDCK, preservat romulo free, quadrival ent DoD Influenza, injectable, MDCK, preservative free, quadrivalent 2016 ALUL, () Not Given Influenza , injectabl e, MDCK, preservat romulo free, quadrival ent DoD Influenza, injectable, quadrivalent, preservative free 1 2015 Unknown, Provider [id number] [address] [place] [address] (SKB) complet ed Influenza , injectabl e, quadrival ent, preservat romulo free DoD Novel influenza-H1N 1-09, injectable 1 2009 Unknown, Provider [id number] 1 [address] [place]. (NOV) complet ed Novel influenza -[id number], injectabl e DoD influenza virus vaccine, live, attenuated, for intranasal use 1 2008 Unknown, Provider [id number] P 111 [employer] (MED) complet ed influenza virus vaccine, live, attenuate d, for intranasa l use DoD influenza virus vaccine, split virus (incl. purified surface antigen)-reti red CODE 1 2007 Unknown, Provider [id number] 15 Sanofi Pasteur ([facility]) complet ed influenza virus vaccine, split virus (incl. purified surface antigen)- retired CODE DoD influenza virus vaccine, split virus (incl. purified surface antigen)-reti red CODE 1 2004 Unknown, Provider [id number] 15 Sanofi Pasteur ([facility]) complet ed influenza virus vaccine, split virus (incl. purified surface antigen)- retired CODE DoD influenza virus vaccine, live, attenuated, for intranasal use 1 2004 Unknown, Provider [id number] 111 [employer] (MED) complet ed influenza virus vaccine, live, attenuate d, for intranasa l use [facility] influenza virus vaccine, whole virus 1 2002 Unknown, Provider [id number] 16 [employer] (PW) complet ed influenza virus vaccine, whole virus [facility] influenza virus vaccine, whole virus 1 2001 Unknown, Provider [id number] 16 Sanofi Pasteur ([facility]) complet ed influenza virus vaccine, whole virus DoD yellow fever vaccine 1 2001 Unknown, Provider [id number] 37 [facility] (CON) complet ed yellow fever vaccine DoD tuberculin skin test; purified protein derivative solution, intradermal 1 2001 Unknown, Provider [id number] Sanofi Pasteur ([facility]MC) complet ed tuberculi n skin test; purified protein derivativ e solution, intraderm al DoD influenza virus vaccine, whole virus 1 2000 Unknown, Provider [id number] 16 Sanofi Pasteur ([facility]MC) complet ed influenza virus vaccine, whole virus DoD tuberculin skin test; purified protein derivative solution, intradermal 1 2000 Unknown, Provider 96 () complet ed tuberculi n skin test; purified protein derivativ e solution, intraderm al DoD influenza virus vaccine, whole virus 1 1999 Unknown, Provider [id number] 16 CristianZara ([facility]) complet ed influenza virus vaccine, whole virus DoD tuberculin skin test; purified protein derivative solution, intradermal 1 1999 Unknown, Provider [id number] 96 [facility] complet ed tuberculi n skin test; purified protein derivativ e solution, intraderm al DoD influenza virus vaccine, whole virus 1 1998 Unknown, Provider [id number] 16 [facility] (CON) complet ed influenza virus vaccine, whole virus DoD influenza virus vaccine, whole virus 1 1997 Unknown, Provider [id number] 16 Ricardo (Inactive) (SC) complet ed influenza virus vaccine, whole virus DoD typhoid vaccine, live, oral 1 1997 Unknown, Provider [id number] 25 [facility] (SI) complet ed typhoid vaccine, live, oral DoD meningococcal polysaccharid e vaccine (MPSV4) 1 1997 Unknown, Provider [id number] 32 [facility] (CON) complet ed meningoco ccal polysacch aride vaccine (MPSV4) DoD tuberculin skin test; purified protein derivative solution, intradermal 1 1997 Unknown, Provider [id number] 96 [facility] ([facility]) complet ed tuberculi n skin test; purified protein derivativ e solution, intraderm al DoD influenza virus vaccine, whole virus 1 1996 Unknown, Provider 16 () complet ed influenza virus vaccine, whole virus DoD tetanus and diphtheria toxoids, adsorbed, preservative free, for adult use (2 Lf of tetanus toxoid and 2 Lf of diphtheria toxoid) 1 1996 Unknown, Provider [phone] Di (LED) complet ed tetanus and diphtheri a toxoids, adsorbed, preservat romulo free, for adult use (2 Lf of tetanus toxoid and 2 Lf of diphtheri a toxoid) DoD hepatitis A vaccine, adult dosage 2 1995 Unknown, Provider 52 () complet ed hepatitis A vaccine, adult dosage DoD hepatitis A vaccine, adult dosage 1 1994 Unknown, Provider 52 () complet ed hepatitis A vaccine, adult dosage DoD typhoid vaccine, parenteral, acetone-kille d, dried ([place] ) 1 1994 Unknown, Provider 53 () complet ed typhoid vaccine, parentera l, acetone-k illed, dried ([place] ) DoD yellow fever vaccine 1 1991 Unknown, Provider 37 () complet ed yellow fever vaccine DoD tetanus and diphtheria toxoids, adsorbed, preservative free, for adult use (2 Lf of tetanus toxoid and 2 Lf of diphtheria toxoid) 1 1986 Unknown, Provider 09 () complet ed tetanus and diphtheri a toxoids, adsorbed, preservat romulo free, for adult use (2 Lf of tetanus toxoid and 2 Lf of diphtheri a toxoid) DoD trivalent poliovirus vaccine, live, oral 1 1985 Unknown, Provider [id number] Di (ALMAS) complet ed trivalent polioviru s vaccine, live, oral DoD measles, mumps and rubella virus vaccine 1 1985 Unknown, Provider [id number] [employer]ck (MSD) complet ed measles, mumps and rubella virus vaccine DoD Encounters Combined list of: 1) Encounters from Department of Veterans Affairs facilities going backup to the last 18 months, not all VA inpatient encounters are included; 2) Encounters from the Department of Defense facilities going backup to 280 months. Location Location Details Encounter Type Encounter Number Reason For Visit Attending Provider ADM Date DC Date Status Disposition Source [address] [place] [address] Jerry NIELSON ([facility]Fam lupe Practice Non-GME FHI2) OUTPATIENT [id number] SILAS ROBLERO 09/20 Released w/o Limitations [employer] ([facility]F amily Practic e Non-GME FHI2) [employer] ([facility] OUTPATIENT [id number] cold symptom s, states fever 104 SILAS ROBLERO E 10/02 Released with Work/Duty Limitations [employer] ([facility]F amily Practic e Non-GME FHI2) [employer] ([facility]Fam lupe Practice Non-GME FHI2) OUTPATIENT [id number] PHA OSBALDOSILAS 10/19 Released w/o Limitations [employer] ([facility]F amily Practic e Non-GME FHI2) [employer] ([facility]) OUTPATIENT [id number] BAMBI GILES 02/14 Released w/o Limitations [employer] ([facility]L andreina Skills [facility]) [employer] ([facility] Non[facility]ME FHI[facility]) OUTPATIENT [id number] left hwwl pain OSBALDOSILAS 04/04 Released w/o Limitations [employer] ([facility]F amily Practic e Non-GME FHI2) [employer] ([facility])(Pt Neuromusc uloskelet al Clinic) OUTPATIENT [id number] NICCI LANG 04/12 Released with Work/Duty Limitations [employer] ([facility])(P t Neuromu sculosk eletal Clinic) [employer] ([facility])([facility] lupe Practice Non-GME FHI2) OUTPATIENT [id number] abd pain MATT CROWELL 05/07 Released w/o Limitations [employer] ([facility]F amily Practic e Non-GME FHI2) [employer] ([facility])(Phy sical Therapy) OUTPATIENT [id number] NICCI LANG 05/08 Released w/o Limitations [employer] ([facility])(P hysical Therapy ) [employer] ([facility]Fam lupe Practice Non-GME FHI1) OUTPATIENT [id number] foot pain GUILLE RAYMUNDO Jose Alfredo 07/06 Released w/o Limitations [facility] [employer] [facility]F amily Practic e Non-GME FHI1) [address] [place] [address] Jerry B [facility])([facility] Non-GME FHI2) OUTPATIENT [id number] L ANKLE PAIN // NEEDS ANNUAL COLON CT MATT CROWELL 10/03 Released w/o Limitations [facility] [employer] [facility]F amily Practic e Non-GME FHI2) [address] [place] [address] [employer] [facility] Practice Non-GME FHI2) OUTPATIENT [id number] L FOOT/HE EL PAIN SILAS ROBLERO 10/15 Released w/o Limitations [address] [place] [address] Jerry B [facility])(F amily Practic e Non-GME FHI2) [address] [place] [address] Jerry B [facility])(Pod iatry) OUTPATIENT [id number] PLANTAR FASCIIT IS LEFT SAM AMOR 10/30 Released w/o Limitations [address] [place] [address] [employer] [facility]P odiatry ) [address] [place] [address] [employer] [facility] Non-GME FHI2) OUTPATIENT [id number] Very bad indiges tion and acid IRMA TANG 03/06 Released w/o Limitations [address] [place] [address] [employer] [facility]F amily Practic e Non-GME FHI2) [address] [place] [address] Jerry B ([facility])(Opt ometry) OUTPATIENT [id number] routine eye exam PRESTON DRAPER 03/27 Released w/o Limitations [address] [place] [address] [employer] [facility]O ptometr y) [address] [place] [address] [employer] [facility] Non-GME FHI2) OUTPATIENT [id number] RETIREM ENT PHYSICA MATT PEREZ 04/16 Released w/o Limitations [address] [place] [address] [employer] [facility])(F amily Practic e Non-GME FHI2) [address] [place] [address] [employer] [facility]Opt ometry) OUTPATIENT [id number] routine eye exam [phone] TAVARES GAMEZ 07/24 Released w/o Limitations [address] [place] [address] [employer] [facility])(O ptometr y) [facility])(Opt ometry) OUTPATIENT [id number] eye exam [id number] 475 FRANKLIN DIAZ 11/20 Released w/o Limitations [facility] ([facility]O ptometr y) [address] [place] [address] Jerry [facility])(Bas e Operation al Medicine Clin) OUTPATIENT [id number] 6 Pre-Emp loyment /Metero logist/ BROOKLYN HANSEN 01/25 Released w/o Limitations [address] [place] [address] Jerry [facility])(B ase Operati onal Medicin e Clin) Procedures Combined list of: 1) Procedures from Department of Veterans Affairs facilities [facility], not all [facility] non-surgical procedures are included; 2) All procedures from the Department of Defense facilities. Procedure Procedure Type Code Date Perfomer Comments Sourc e Spectacles Services Fitting Bifocal Except For Aphakia Spectacles Services Fitting Bifocal Except For Aphakia 29001 11/21/19 13 FRANKLIN DIAZ Ophthalmological Prior Patient Start Comprehensive Care Ophthalmological Prior Patient Start Comprehensive Care 02130 11/21/19 13 FRANKLIN DIAZ Determination Of Refractive State Determination Of Refractive State 75502 11/21/19 13 FRANKLIN DIAZ Spectacles Services Fitting Monofocal Except For Aphakia Spectacles Services Fitting Monofocal Except For Aphakia 47264 07/24/19 11 HANNAH GAMEZ Determination Of Refractive State Determination Of Refractive State 94210 07/24/19 11 HANNAH GAMEZ [facility] Ophthalmological New Patient Start Comprehensive Care Ophthalmological New Patient Start Comprehensive Care 08719 07/24/19 11 HANNAH GAMEZ Ophthalmological New Patient Start Comprehensive Care Ophthalmological New Patient Start Comprehensive Care 60805 03/27/20 06 PRESTON DRAPER [facility] Visual Todd Test Intermediate Examination Visual Todd Test Intermediate Examination 19182 03/27/20 06 PRESTON DRAPER Determination Of Refractive State Determination Of Refractive State 89196 03/27/20 06 PRESTON DRAPER Spectacles Services Fitting Monofocal Except For Aphakia Spectacles Services Fitting Monofocal Except For Aphakia 76894 03/27/20 06 PRESTON DRAPER [facility] Physical Therapy Service Re-Evaluation Physical Therapy Service Re-Evaluation 15548 05/08/20 05 NICCI LANG [facility] Physical Therapy Service Evaluation Physical Therapy Service Evaluation 98344 04/12/20 05 NICCI LANG [facility] Phys Therapy Education Self Care Training - Per 15 Minutes Phys Therapy Education Self Care Training - Per 15 Minutes 07051 04/12/20 05 NICCI LANG [facility] Physician Supervised Services Provision Of Special Supplies Physician Supervised Services Provision Of Special Supplies 08045 04/12/20 05 NICCI LANG [facility] Health And Behav Intervention, Each Additional 15 Min Grp (2 Or More) Health And Behav Intervention, Each Additional 15 Min Grp (2 Or More) 90994 02/15/20 05 BAMBI GILES [facility] Pulse Oximetry Pulse Oximetry 54800 09/22/19 05 SILAS ROBLERO [facility] Spirometry Peak Expiratory Flow Spirometry Peak Expiratory Flow 76357 09/22/19 05 SILAS ROBLERO [facility] Preventive Medicine Administration Of Health Risk Questionnaire Patient-Focused Preventive Medicine Administration Of Health Risk Questionnaire Patient-Focused 40308 BROOKLYN HANSEN [facility] Social History Combined list of available smoking, tobacco, and other social history from Department of Defense and Veterans Affairs facilities. Social History Type Response Date Comment Sour e This section is an empty social history section. DoD
--- OUTSIDE RECORDS SUMMARY | 2024-11-14 07:10 | XMS_ITS | Clinical Summary ---
Author Organization [facility] Address [address] [place] [address] Care Team Providers Care Systems Architect Name Role Phone Yinka Kim MD Unavailable [phone]- [phone] Carolina Meier MD Unavailable [phone]- [phone] Manuel Merino MD Unavailable [phone] Mikal Moreno DO Primary Care Provider [phone]- [phone] Allergies Active Allergy Reactions Criticality Noted Date Comments Adhesive Hives Medium 11/25/2018 Medications amitriptyline (ELAVIL) 10 mg tablet Take 1 tablet (10 mg total) by mouth nightly 9 Active lisinopril (PRINIVIL,ZESTR IL) 40 mg tablet Take 1 tablet (40 mg total) by mouth manager medical device before breakfast 9 Active hydroCHLOROthia zide (HYDRODIURIL) 25 mg tablet Take 1 tablet (25 mg total) by mouth manager medical device before breakfast 9 Active atorvastatin (LIPITOR) 40 mg tablet Take 1 tablet (40 mg total) by mouth nightly 9 Active CIALIS 20 mg tablet Take 1 tablet (20 mg total) by mouth daily as needed for erectile dysfunction 9 Active cholecalciferol (VITAMIN D-3) 5,000 unit tablet Take 1 tablet (5,000 Units total) by mouth nightly Active loratadine (CLARITIN) 10 mg tablet Take 1 tablet (10 mg total) by mouth nightly Active atenoloL (TENORMIN) 50 mg tablet 0 Active diphenhydrAMINE (BENADRYL) 50 mg capsule Take 1 capsule (50 mg total) by mouth every 6 (six) hours as needed for itching Active esomeprazole DR (NexIUM) 40 mg capsule 0 Active metFORMIN XR (GLUCOPHAGE XR) 500 mg 24 hr tablet 3 Active amLODIPine (NORVASC) 5 mg tablet 3 Active Active Problems Problem Noted Date Diagnosed Date Encounter for follow-up exam ination after completed treatment for malignant neoplasm 03/22/2020 Personal history of irradiation 03/22/2020 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 Overview (02/23/2019): Added automatically from request for surgery [id number] 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 Cancer Staging:Clinical stage from 01/05/2019:Stage IB(cT4, cN0, cM0, FNCLCC histologic grade: G1) - Signed by Mariel Stringer MD on 01/05/2019 Encounters Date Type Department Care Team Description 09/24/2024 Results Follow-Up [facility] Radiation Oncology [address] [place] [address] Lilibeth Davenport NP MRI Thigh Femur Right W WO Contrast 09/23/2024 10:30 AM CDT Office Visit [facility] Radiation Oncology [address] [place] [address] Lilibeth Davenport NP Sarcoma of right thigh (HCC) (Primary Dx); Encounter for follow-up examination after completed treatment for malignant neoplasm; Personal history of irradiation; 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, including hip (HCC) 09/23/2024 8:08 AM CDT - 09/23/2024 11:59 PM CDT Hospital Encounter [facility] Imaging and Radiology [address] [place] [address] Sarcoma of right thigh (HCC); Personal history of irradiation Discharge Disposition: Discharge to home or self care 09/23/2024 8:08 AM CDT - 09/23/2024 11:59 PM CDT Hospital Encounter [facility] Imaging and Radiology [address] [place] [address] Sarcoma of right thigh (HCC); Personal history of irradiation Discharge Disposition: Discharge to home or self care 09/23/2024 Orders Only [facility] Radiation Oncology [address] [place] [address] Manuel Merino MD Sarcoma of right thigh (HCC) (Primary Dx); Encounter for follow-up examination after completed treatment for malignant neoplasm; Personal history of irradiation from Last 3 Months Immunizations Immunization Administration Dates Next Due Influenza, Unspecified 03/30/2019 Surgical History Surgery Date Site/Laterality Comments COLECTOMY COLON SURGERY 1998, 2000 COLOSTOMY REVISION COLOSTOMY APPENDECTOMY 06/17/2000 - 06/16/2001 ANKLE SURGERY 06/17/2007 - 06/16/2008 Left Medical History Medical History Date Comments Hypertension Migraines Obesity Pneumonia Sleep apnea Hypercholesteremia Gastric reflux Kidney stone H/O small bowel obstruction 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 02/27/2019 Family History Medical History Relation Name Comments Depression Brother Arthritis Father Atrial fibrillation Father Heart disease Father Hyperlipidemia Father Stroke Father Anesthesia problems Maternal Grandmother post op confusion in 80s associated with Alzheimers Breast cancer Maternal Grandmother Arthritis Mother Cancer Mother Diabetes Mother Hyperlipidemia Mother Cancer Paternal Grandfather Lung Ca ncer Breast cancer Paternal Grandmother Relation Name Status Comments Brother Father Maternal Grandmother Mother Paternal Grandfather Paternal Grandmother Social History Tobacco Use Types Packs/Day Years Used Date Smoking Tobacco: Former Cigarettes 0.1 5 018 - 2022 Smokeless Tobacco: Never Alcohol Use Standard Drinks/Week Comments Yes 0 (1 standard drink = 0.6 oz pur e alcohol) social drinker Sex and Gender Information Value Date Recorded Sex Assigned at Not on file Legal Sex Male 8:57 AM CDT Gender Identity Not on file Sexual Orientation Straight 02/22/2019 5: 59 PM CDT Obstetrics History Last Filed Vital Signs Vital Sign Reading Time Taken Comments Blood Pressure 133/87 09/23/2024 10:49 AM CDT Pulse 57 09/23/2024 10:49 AM CDT Temperature 36.7 C (98 F) 09/23/2024 10:49 AM CDT Respiratory Rate 20 09/23/2024 10:49 AM CDT Oxygen Saturation 100% 09/23/2024 10:49 AM CDT Inhaled Oxygen Concentration - - Weight 99.3 kg (219 lb) 09/23/2024 10:49 AM CDT Height 177.8 cm (5' 10) 08/22/2022 11:59 AM HOSPITAL SCIENTIST Body Mass Index 31.42 08/22/2022 11:59 AM HOSPITAL SCIENTIST Plan of Treatment Health Maintenance Due Date Last Done Comments Colon Cancer Screening-Colonoscopy 1966 Depression Screening 1966 Hepatitis C Screening 1966 Prostate Cancer Screening-PSA 1966 Hepatitis B Screening 1984 Regular Well Visit/Exam 18-64 1984 Zoster Vaccine (1 of 2) 2016 Covid-19 Vaccine ( season) 2024 03/24/2021, 09/20/2020, 08/28/2020 DTaP/Tdap/Td Vaccine (2 - Td or Tdap) 02/03/2030 02/04/2020 Influenza Vaccine Completed 02/15/2024, , 04/01/2020, Additional history exists Pneumococcal vaccine <65 Aged Out No longer eligible based on patient's age to complete this topic Medical Devices Implanted Type Area Juvenile Correctional Officer Device Identifier Shelf Expiration Date Model / Serial / Lot Lt Foot Ortho Instrumentation ,Plates/Screws Left: Foot Procedures Procedure Name Priority Date/Time Associated Diagnosis Comments MRI THIGH FEMUR RIGHT W WO CONTRAST Schedule Routine, Read Routine (OP Routine) 09/23/2024 10:30 AM CDT Sarcoma of right thigh (HCC) Personal history of irradiation CT CHEST WO CONTRAST Schedule Routine, Read Routine (OP Routine) 09/23/2024 8:32 AM CDT Sarcoma of right thigh (HCC) Personal history of irradiation from Last 3 Months Results * MRI Thigh Femur Right W WO Contrast (09/23/2024 10:30 AM CDT) Anatomical Region Laterality Modality Lower Extremities Right Magnetic Reson ance 09/23/2024 1:43 PM CDT Impressions 09/23/2024 2:43 PM CDT 1. Unchanged right-sided anterior compartment sarcoma resection without evidence of local tumor recurrence. 2. Unchanged linear non mass-like enhancement involving the vastus lateralis which may represent posttreatment changes or prior injury. Recommend continued attention on follow-up. Dictated by: Eder Melendrez MD The radiology attending physician has personally reviewed this study, and had reviewed and/or edited this written report and agrees with it. Electronically signed by: Nelly Ruiz MD Narrative 09/23/2024 2:43 PM CDT EXAMINATION: 1. 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 TECHNIQUE: MR examination of the right femur was performed with a multi-coil ray. Images were obtained prior to and following the intravenous administration of 20 mL Dotarem. Coronal short TR/TE and STIR images and transverse short TR/TE and fast spin echo images of the right femur were obtained without contrast.. Post contrast short TR/TE images were obtained in the axial and coronal. FINDINGS: Comparison is made to MRI 03/04/2024. Again noted are postsurgical changes of right anterior thigh compartment sarcoma resection. Slight interval decrease in subcutaneous edema along the incision with minimal residual linear enhancement. No soft tissue nodularity or abnormal enhancement suggest disease recurrence. Linear non mass-like enhancement involving the vastus lateralis myotendinous junction (series [id number], image 35) is grossly unchanged compared to 03/04/2024. Slight interval decrease in adjacent edema within the vastus lateralis. This was first seen on 03/15/2020 and may represent posttreatment changes or sequela of injury. Unchanged atrophy of the distal quadriceps muscles with intramuscular edema. Moderate persistent subcutaneous edema throughout the right anterior medial thigh. Intramuscular lipoma within the right abductor mary is unchanged. No suspicious marrow replacing lesion or acute fracture. The visualized sciatic nerves are normal. Procedure Note Nelly Ruiz MD - 09/23/2024 EXAMINATION: 1. 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 TECHNIQUE: MR examination of the right femur was performed with a multi-coil ray. Images were obtained prior to and following the intravenous administration of 20 mL Dotarem. Coronal short TR/TE and STIR images and transverse short TR/TE and fast spin echo images of the right femur were obtained without contrast.. Post contrast short TR/TE images were obtained in the axial and coronal. FINDINGS: Comparison is made to MRI 03/04/2024. Again noted are postsurgical changes of right anterior thigh compartment sarcoma resection. Slight interval decrease in subcutaneous edema along the incision with minimal residual linear enhancement. No soft tissue nodularity or abnormal enhancement suggest disease recurrence. Linear non mass-like enhancement involving the vastus lateralis myotendinous junction (series [id number], image 35) is grossly unchanged compared to 03/04/2024. Slight interval decrease in adjacent edema within the vastus lateralis. This was first seen on 03/15/2020 and may represent posttreatment changes or sequela of injury. Unchanged atrophy of the distal quadriceps muscles with intramuscular edema. Moderate persistent subcutaneous edema throughout the right anterior medial thigh. Intramuscular lipoma within the right abductor mary is unchanged. No suspicious marrow replacing lesion or acute fracture. The visualized sciatic nerves are normal. IMPRESSION: 1. Unchanged right-sided anterior compartment sarcoma resection without evidence of local tumor recurrence. 2. Unchanged linear non mass-like enhancement involving the vastus lateralis which may represent posttreatment changes or prior injury. Recommend continued attention on follow-up. Dictated by: Eder Melendrez MD The radiology attending physician has personally reviewed this study, and had reviewed and/or edited this written report and agrees with it. Electronically signed by: Nelly Ruiz MD Lilibeth Davenport NP IMG MRI PROCEDURES Fi nal Result * CT Chest WO Low Dose Protocol (09/23/2024 8:32 AM CDT) Anatomical Region Laterality Modality Body N/A Computed Tomogra phy 09/23/2024 9:31 AM CDT Impressions 09/23/2024 10:09 AM CDT No interval pulmonary metastatic disease. Electronically signed by: Celina Berumen M.D. Narrative 09/23/2024 10:09 AM CDT Examination: CT CHEST WO CONTRAST Date: 09/23/2024 8:45 AM Clinical History: Soft tissue sarcoma, stage I, follow up hx sarcoma right thigh s/p radiation and resection with close surgical margins Technique: Computed tomographic images of the chest were obtained in the axial plane without the administration of contrast. 2-D Coronal and sagittal reformatted images were performed. Comparison: CT chest 03/04/2024 Findings: Normal heart size noted without pericardial effusion..Nonaneurysmal aorta is present. There is no mediastinal lymphadenopathy. No interval nodule consolidation or effusion noted..Several calcified left lower lobe granulomas are present. Several midthoracic vertebral superior endplate concave deformities again noted. The visible portions of the upper abdomen are unremarkable. Procedure Note Celina Berumen MD - 09/23/2024 Examination: CT CHEST WO CONTRAST Date: 09/23/2024 8:45 AM Clinical History: Soft tissue sarcoma, stage I, follow up hx sarcoma right thigh s/p radiation and resection with close surgical margins Technique: Computed tomographic images of the chest were obtained in the axial plane without the administration of contrast. 2-D Coronal and sagittal reformatted images were performed. Comparison: CT chest 03/04/2024 Findings: Normal heart size noted without pericardial effusion..Nonaneurysmal aorta is present. There is no mediastinal lymphadenopathy. No interval nodule consolidation or effusion noted..Several calcified left lower lobe granulomas are present. Several midthoracic vertebral superior endplate concave deformities again noted. The visible portions of the upper abdomen are unremarkable. IMPRESSION: No interval pulmonary metastatic disease. Electronically signed by: Celina Berumen M.D. Lilibeth Davneport NP IMG CT PROCEDURES Fin al Result from Last 3 Months Insurance [facility] CLAIMS [facility] Advance Directives For more information, please contact: [phone] Documents on File Type Date Recorded Patient Diesel Mechanic Helper Expl anation ADVANCE DIRECTIVE 04/10/2019 8:04 AM Kimberly r of [employer]-Financial/Medica l * Full Code (Latest Code Status on File) Date Activated Date Inactivated Comments 04/10/2019 3:17 PM 04/13/2019 5:30 PM Care Teams Systems Architect Relationship Specialty Start Date End Date Mikal Moreno DO [address] [place] [address] PCP - General Internal Medicine 11/29/23 Yinka Kim MD Radiation Oncologist Radiation Oncology 01/30/19 Carolina Meier MD Surgeon Orthopedic Surgery 01/30/19 Manuel Merino MD [address] [place] [address] Consulting Physician Radiation Oncology 08/29/22
--- OUTSIDE RECORDS SUMMARY | 2024-11-14 07:10 | XMS_ITS ---
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 Past Treatment and Therapy Plans No past plan information found. Radiation Treatments (No Episode) * Course C1 R_THIGH 2019 01/23/2019 - 02/27/2019 Treatment Period Energy Fraction Dose Fractions Total Dose Plans Planned R_THIGH # 01/23/2019 - 02/27/2019 200 25 / 5,000 Reference Points Delivered PTV_5000 01/23/2019 - 02/27/2019 5,000 Lifetime Dose Tracking * Chemical Lifetime Dose Automatic Entry Manual Entr y DLP 6,461 mGycm 6,461 mGycm 0 mGycm
--- OUTSIDE RECORDS SUMMARY | 2024-11-14 07:10 | XMS_ITS | Referral Summary ---
Author Organization [facility] Address [address] [place] [address] Care Team Providers Care Fur Feeder Name Role Phone Yinka Kim MD Unavailable [phone]- [phone] Carolina Meier MD Unavailable [phone]- [phone] Manuel Merino MD Unavailable [phone] Mikal Moreno DO Primary Care Provider [phone]- [phone] Encounters Date Type Department Care Team Description 09/24/2024 Results Follow-Up [facility] Radiation Oncology [address] [place] [phone] Lilibeth Davenport NP MRI Thigh Femur Right W WO Contrast 09/23/2024 Orders Only [facility] Radiation Oncology [address] [place] [phone] Manuel Merino MD Sarcoma of right thigh (HCC) (Primary Dx); Encounter for follow-up examination after completed treatment for malignant neoplasm; Personal history of irradiation 09/23/2024 10:30 AM CDT Office Visit [facility] Radiation Oncology [address] [place] [phone] Lilibeth Davenport NP Sarcoma of right thigh (HCC) (Primary Dx); Encounter for follow-up examination after completed treatment for malignant neoplasm; Personal history of irradiation; 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, including hip (HCC) 09/23/2024 8:08 AM CDT - 09/23/2024 11:59 PM CDT Hospital Encounter [facility] Imaging and Radiology [address] [place] [phone] Sarcoma of right thigh (HCC); Personal history of irradiation Discharge Disposition: Discharge to home or self care 09/23/2024 8:08 AM CDT - 09/23/2024 11:59 PM CDT Hospital Encounter [facility] Imaging and Radiology [address] [place] [phone] Sarcoma of right thigh (HCC); Personal history of irradiation Discharge Disposition: Discharge to home or self care from Last 3 Months Allergies Active Allergy Reactions Criticality Noted Date Comments Adhesive Hives Medium 11/25/2018 Medications amitriptyline (ELAVIL) 10 mg tablet Take 1 tablet (10 mg total) by mouth nightly 9 Active lisinopril (PRINIVIL,ZESTR IL) 40 mg tablet Take 1 tablet (40 mg total) by mouth filter tender jelly before breakfast 9 Active hydroCHLOROthia zide (HYDRODIURIL) 25 mg tablet Take 1 tablet (25 mg total) by mouth filter tender jelly before breakfast 9 Active atorvastatin (LIPITOR) 40 [...] (02/23/2019): Added automatically from request for surgery [id number] 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 Cancer Staging:Clinical stage from 01/05/2019:Stage IB(cT4, cN0, cM0, FNCLCC histologic grade: G1) - Signed by Mariel Stringer MD on 01/05/2019 Immunizations Immunization Administration Dates Next Due Influenza, Unspecified 03/30/2019 Social History Tobacco Use Types Packs/Day Years Used Date Smoking Tobacco: Former Cigarettes 0.1 5 2 018 - 2022 Smokeless Tobacco: Never Alcohol Use Standard Drinks/Week Comments Yes 0 (1 standard drink = 0.6 oz pur e alcohol) social drinker Sex and Gender Information Value Date Recorded Sex Assigned at Not on file Legal Sex Male 8:57 AM CDT Gender Identity Not on file Sexual Orientation Straight 02/22/2019 5: 59 PM CDT Last Filed Vital Signs Vital Sign Reading [...] 177.8 cm (5' 10) 08/22/2022 11:59 AM PUBLIC ACCOUNTANT Body Mass Index 31.42 08/22/2022 11:59 AM PUBLIC ACCOUNTANT Plan of Treatment Not on file Medical Devices Implanted Type Area Putty Remover Device Identifier Shelf Expiration Date Model / [...] and agrees with it. Electronically signed by: eNlly Ruiz MD Narrative 09/23/2024 2:43 PM CDT [...] involving the vastus lateralis myotendinous junction (series [id number], image 35) is grossly unchanged compared to [...] involving the vastus lateralis myotendinous junction (series [id number], image 35) is grossly unchanged compared to [...] signed by: Nelly Ruiz MD Lilibeth Davenport GRANT MANAGER IMG MRI PROCEDURES Fi nal Result * [...] Electronically signed by: Celina Berumen M.D. Lilibeth Davenport GRANT MANAGER IMG CT PROCEDURES Fin al Result from Last 3 Months Insurance [facility] CLAIMS [facility] CLAIMS [facility] Advance Directives For more information, please contact: [phone] Documents on File Type Date Recorded Patient Imaging Aide Expl anation ADVANCE DIRECTIVE 04/10/2019 8:04 AM Kimberly r of [employer]-Financial/Medica l * Full Code (Latest Code Status on File) Date Activated Date Inactivated Comments 04/10/2019 3:17 PM 04/13/2019 5:30 PM Care Teams Fur Feeder Relationship Specialty Start Date End Date Mikal Moreno DO [address] [place] [address] PCP - General Internal Medicine 11/29/23 Yinka Kim MD Radiation Oncologist Radiation Oncology 01/30/19 Carolina Meier MD Surgeon Orthopedic Surgery 01/30/19 Manuel Merino MD [address] [place] [address] Consulting Physician Radiation Oncology 08/29/22
--- OUTSIDE RECORDS SUMMARY | 2024-11-14 07:10 | XMS_ITS | Encounter Summary ---
Author Organization [facility] Address [address] [place] [address] Care Team Providers Care Executive Director Sheltered Workshop Name Role Phone Yinka Kim MD Unavailable [phone] Carolina Meier MD Unavailable [phone]- [phone] Manuel Merino MD Unavailable Mikal Moreno DO Primary Care Provider [phone]- [phone] Encounter Details Date Type Department Care Team (Late st Contact Info) Description 09/24/2024 Results Follow-Up [facility] Radiation Oncology [facility] [place] [address] Lilibeth Davenport, SENIOR PRODUCTION MANAGER [address] [place] [address] MRI Thigh Femur Right W WO Contrast Social History Tobacco Use Types Packs/Day Years Used Date Smoking Tobacco: Former Cigarettes 0.1 5 2 018 - 2023 Smokeless Tobacco: Never Alcohol Use Standard Drinks/Week Comments Yes 0 (1 standard drink = 0.6 oz pur e alcohol) social drinker Sex and Gender Information Value Date Recorded Sex Assigned at Not on file Legal Sex Male 8:57 AM CDT Gender Identity Not on file Sexual Orientation Straight 02/22/2019 5: 59 PM CDT documented as of this encounter Plan of Treatment Not on file documented as of this encounter Visit Diagnoses Not on filedocumented in this encounter Care Teams Executive Director Sheltered Workshop Relationship Specialty Start Date End Date Mikal Moreno DO [address] [place] [address] PCP - General Internal Medicine 11/29/23 Yinka Kim MD Radiation Oncologist Radiation Oncology 01/30/19 Carolina Meier MD Surgeon Orthopedic Surgery 01/30/19 Manuel Merino MD [address] [place] [address] Consulting Physician Radiation Oncology 08/29/22 documented as of this encounter
[2024-11-14 07:36] LABS: Alanine Aminotransferase 35 U/L (6-50); Albumin Level 4.4 g/dL (3.5-5.1); Alkaline Phosphatase 74 U/L (38-126); Anion Gap 6 mmol/L (4-12); Aspartate Amino Transferase 28 U/L (17-59); Bilirubin,Total 1.2 mg/dL (0.2-1.3); Blood Urea Nitrogen 30 mg/dL (9-20); Calcium 9.4 mg/dL (8.4-10.2); Carbon Dioxide 31 mmol/L (22-30); Chloride 103 mmol/L (98-107); Cholesterol 135 mg/dL (0-200); Estimated Glomerular Filt Rate > 60; Glucose 113 mg/dL (65-110); HDL Direct 33 mg/dL; Potassium 3.5 mmol/L (3.4-5.0); Sodium 140 mmol/L (137-145); Triglycerides 149 mg/dL (<150)
[2024-11-14 07:40] LABS: Basophils Percent Auto 0.5 % (0.2-1.2); Eosinophils Absolute Auto 0.1 K/mm3 (0-0.3); Eosinophils Percent Auto 1.3 % (0-4.4); Hematocrit 44.4 % (42.0-52.0); Hemoglobin 14.9 g/dL (14.0-18.0); Immature Granulocyte Absolute 0.05 K/mm3 (0.00-0.031); Immature Granulocyte Percent A 0.8 % (0-0.5); Lymphocytes Absolute Auto 1.94 K/mm3 (0.9-3.2); Lymphocytes Percent Auto 31.7 % (18.3-44.2); Mean Corpuscular HGB Conc 33.6 g/dl (32-36); Mean Corpuscular Hemoglobin 29.7 pg (26-34); Mean Corpuscular Volume 88.6 fl (80-100); Mean Platelet Volume 12.9 fl (7.4-10.4); Monocytes Absolute Auto 0.5 K/mm3 (0.1-0.6); Monocytes Percent Auto 8.2 % (2.6-8.5); Neutrophils Absolute Auto 3.5 K/mm3 (1.3-6.7); Neutrophils Percent Auto 57.5 % (45.5-73.1); Platelet Count Result 128 k/mm3 (150-375); Red Blood Count 5.01 M/mm3 (4.6-6.20); Red Cell Distribution Width 13.5 % (11.5-14.5); White Blood Count 6.1 K/mm3 (4.5-10.0)
[2024-11-14 07:47] LABS: Hemoglobin A1C 5.6 % (<5.7); LDL Cholesterol Direct 67 mg/dL
[2024-11-14 08:26] LABS: Vitamin B12 > 1000.0 pg/mL (239-931)
== END 2024-11-14 07:07 | disposition home or self-care (01) ==
LOC: ANHLAB 07:07
PROVIDERS: PCP Clinical Nurse Specialist; Visit Provider Clinical Nurse Specialist
DX: N20.0 Calculus of kidney (principal); E11.9 Type 2 diabetes mellitus without complications; E78.5 Hyperlipidemia, unspecified; I10 Essential (primary) hypertension
CPT/HCPCS: 36415; 80053; 80061; 82607; 83036; 85025

== ENCOUNTER 2025-05-22 06:59 | Outpatient (CLI) | payer OTHER, SELFPAY ==
[2025-05-22 07:36] LABS: Hematocrit 41.5 % (42.0-52.0); Hemoglobin 14.5 g/dL (14.0-18.0); Immature Granulocyte Percent A 0.2 % (0-0.5); Lymphocytes Absolute Auto 1.57 K/mm3 (0.9-3.2); Mean Corpuscular HGB Conc 34.9 g/dl (32-36); Mean Corpuscular Hemoglobin 30.4 pg (26-34); Mean Corpuscular Volume 87.0 fl (80-100); Nucleated Red Blood Cells Absolute Auto 0.000 K/mm3 (0.0-0.012); Nucleated Red Blood Cells Perc 0.0 % (0.0-0.2); Platelet Count Result 123 k/mm3 (150-375); Red Blood Count 4.77 M/mm3 (4.6-6.20); White Blood Count 5.7 K/mm3 (4.5-10.0)
[2025-05-22 07:46] LABS: Hemoglobin A1C 5.7 % (<5.7)
[2025-05-22 07:56] LABS: Alanine Aminotransferase 46 U/L (6-50); Albumin Level 4.3 g/dL (3.5-5.1); Alkaline Phosphatase 85 U/L (38-126); Anion Gap 5 mmol/L (4-12); Aspartate Amino Transferase 26 U/L (17-59); Bilirubin,Total 1.3 mg/dL (0.2-1.3); Blood Urea Nitrogen 25 mg/dL (9-20); Calcium 9.4 mg/dL (8.4-10.2); Carbon Dioxide 29 mmol/L (22-30); Chloride 104 mmol/L (98-107); Cholesterol 126 mg/dL (0-200); Estimated Glomerular Filt Rate > 60; Glucose 117 mg/dL (65-110); HDL Direct 33 mg/dL; Potassium 3.6 mmol/L (3.4-5.0); Sodium 138 mmol/L (137-145); Total Protein 7.1 g/dL (6.3-8.2); Triglycerides 100 mg/dL (<150)
[2025-05-22 08:31] LABS: Prostate Specific Antigen 1.1 ng/mL (< OR = 4.0)
[2025-05-22 08:43] LABS: MALB Creatinine Ratio 10.2 mg/g (0-30)
== END 2025-05-22 07:00 | disposition home or self-care (01) ==
LOC: ANHLAB 07:01
PROVIDERS: PCP Clinical Nurse Specialist; Visit Provider Clinical Nurse Specialist
DX: Z12.5 Encounter for screening for malignant neoplasm of prostate (principal); I10 Essential (primary) hypertension; E78.2 Mixed hyperlipidemia; D64.9 Anemia, unspecified; E11.65 Type 2 diabetes mellitus with hyperglycemia; Z85.831 Personal history of malignant neoplasm of soft tissue
CPT/HCPCS: 36415; 80053; 80061; 82043; 83036; 84153; 85025; G0103